=== PATIENT | male | born 1995 | race Caucasian/White ===

== ENCOUNTER 2019-01-16 12:30 | Emergency (ER) | payer OTHER ==
[~2019-01-16] VITALS: Wt 84.6 kg
[2019-01-16 12:35] VITALS: RESP 22
[2019-01-16] MEDS ORDERED: KETOROLAC 60 MG INJ IM STA (13:42)
[2019-01-16] MEDS ORDERED: IBUP-1542 PO (13:44)
[2019-01-16] MEDS ORDERED: MED4DP PO (13:44)
[2019-01-16] MEDS ORDERED: CYCL10TA7 PO (13:44)
[2019-01-16] MEDS ORDERED: HYDR-4011 PO (13:44)
--- NOTE | 2019-01-16 13:49 | ERD ---
ER Documentation Chief Complaint Chief Complaint L lower back pain since yest p lifting furn; hx 'pinched nerve' HPI This is a 23-year-old male with a history of chronic back pain who presents ED with complaints of flareup of low back pain that started yesterday. Patient was lifting heavy furniture at work when he started experiencing left low back pain. Patient admits to painful range of motion and decreased range of motion due to pain. Denies any tingling, numbness, lack sensation, bowel/bladder incontinence, weakness, history of IV drug use, saddle paresthesias, fevers, chills and other symptoms. No known drug allergies. ROS All systems reviewed and are negative except as per history of present illness. Medications Home Meds Active Scripts Methylprednisolone* (Medrol* DOSE PACK) 4 Mg/Dose-Pack Tab.ds.pk, 4 MG PO . DIRECTED for 5 Days, PACKET Prov:KRISTIAN MARKS PA-C 01/16/19 Ibuprofen* (Motrin*) 600 Mg Tab, 600 MG PO Q6, #30 TAB Prov:KRISTIAN MARKS PA-C 01/16/19 Cyclobenzaprine Hcl* (Cyclobenzaprine Hcl*) 10 Mg Tablet, 10 MG PO TID, #15 TAB Prov:KRISTIAN MARKS PA-C 01/16/19 Hydrocodone/Acetaminophen (Flushing 5-325 Tablet) 1 Each Tablet, 1 TAB PO Q6H PRN for PAIN, #7 TAB Prov:KRISTIAN MARKS PA-C 01/16/19 Allergies Allergies: Coded Allergies: No Known Allergy (Unverified , 01/16/19) PMhx/Soc Medical and Surgical Hx: pt denies Medical Hx, pt denies Surgical Hx Hx Alcohol Use: No Hx Substance Use: No Hx Tobacco Use: No Smoking Status: Never smoker FmHx Family History: No diabetes Physical Exam Vitals Vital Signs Date Temp Pulse Resp B/P (MAP) Pulse Ox O2 O2 Flow FiO2 Time Delivery Rate 01/16/19 97.5 90 22 175/84 97 12:35 (114) Physical Exam Const: Mild distress Head: Atraumatic Eyes: Normal Conjunctiva ENT: Normal External Ears, Nose and Mouth. Neck: Full range of motion. No meningismus. Resp: Clear to auscultation bilaterally Cardio: Regular rate and rhythm, no murmurs Skin: No petechiae or rashes Back: No thoracic or lumbar midline tenderness, there is moderate tenderness palpation along the paravertebral muscles in the left low back, no step-off deformities, positive straight leg raise on left and side Ext: No cyanosis, or edema Neur: Awake and alert Psych: Normal Mood and Affect Results 24 hrs Current Medications Medications Dose Sig/Heri Start Time Status Last (Trade) Ordered Route PRN Stop Time Admin Dose Reason Admin Ketorolac 60 mg ONCE STAT 01/16/19 DC 01/16/19 Tromethamine IM 13:42 13:58 (Toradol) 01/16/19 13:44 125 mg ONCE ONCE 01/16/19 DC 01/16/19 Methylprednis IM 14:00 13:58 olone Sodium 01/16/19 14:01 Succinate (Solu-Medrol) 10 mg ONCE ONCE 01/16/19 DC 01/16/19 Cyclobenzapri PO 14:00 13:56 ne HCl 01/16/19 14:01 (Flexeril) 1 tab ONCE ONCE 01/16/19 DC 01/16/19 Acetaminophen PO 14:00 13:56 / 01/16/19 14:01 Hydrocodone Bitart (Flushing (5/325)) Procedures/MDM ER COURSE: The patient was given Toradol, Solu-Medrol, Flexeril Flushing The medication was well tolerated and the patient reports improvement in symptoms. The patient was stable throughout ED course. I kept the patient and/or family informed of laboratory and diagnostic imaging results throughout the emergency room course. The patient was promptly evaluated and a treatment plan was devised based on H&P and other data. This plan was discussed with the patient who agreed and had no further questions or concerns prior to discharge. MEDICAL DECISION MAKIN-year-old male presents ED with flareup of low back pain that started yesterday while lifting a heavy piece of furniture at work. Given mechanism of injury and location of back pain being along the paravertebral muscles this is likely a muscle strain or muscle related pain with flareup of sciatica. History and physical examination other data not consistent with processing including cauda equina syndrome, cord compression, infiltrative etiology, infectious etiology, epidural abscess, fracture, obstructive pyelonephritis, abdominal aortic aneurysm. Vitals are stable and patient can be managed outpatient with close follow-up. Advised patient to follow up with primary care in the next 48 hours. return to ED with any worsening symptoms DISPOSITION PLAN: We discussed follow up with the patient's primary care doctor within 24 to 48 hours. Patient counseled regarding my diagnostic impression and care plan. Prior to discharge all questions answered. Pt agrees with treatment plan and un derstands strict return precautions. Precautionary instructions provided including instructions to return to the ER if not improving or for any worsening or changing symptoms or concerns. SPECIALIST FOLLOW UP RECOMMENDED: None Patient has been advised to follow up with primary care in 1-2 days. Disclaimer: Inadvertent spelling and grammatical errors are likely due to EHR/dictation software use and do not reflect on the overall quality of patient care. Also, please note that the electronic time recorded on this note does not necessarily reflect the actual time of the patient encounter. Blood Pressure Assessment: Patient's blood pressure was elevated (>120/80) but appears stable without evidence of hypertension emergency or urgency. The patient was counseled about the risks of hypertension and urged to pursue outpatient monitoring and therapy within a week with their primary care marita cat. Departure Diagnosis: Primary Impression: Back pain Back pain location: low back pain Chronicity: acute Back pain laterality: left Sciatica presence: with sciatica Sciatica laterality: sciatica of left side Qualified Codes: M54.42 - Lumbago with sciatica, left side Condition: Stable Patient Instructions: Back Pain (Acute Or Chronic), Back Pain W/ Sciatica Referrals: COMMUNITY CLINICS YOU HAVE RECEIVED A MEDICAL SCREENING EXAM AND THE RESULTS INDICATE THAT YOU DO NOT HAVE A CONDITION THAT REQUIRES URGENT TREATMENT IN THE EMERGENCY DEPARTMENT. FURTHER EVALUATION AND TREATMENT OF YOUR CONDITION CAN WAIT UNTIL YOU ARE SEEN IN YOUR DOCTORS OFFICE WITHIN THE NEXT 1-2 DAYS. IT IS YOUR RESPONSIBILITY TO MAKE AN APPOINTMENT FOR FOLOW-UP CARE. IF YOU HAVE A PRIMARY DOCTOR --you should call your primary doctor and schedule an appointment IF YOU DO NOT HAVE A PRIMARY DOCTOR YOU CAN CALL OUR PHYSICIAN REFERRAL HOTLINE AT IF YOU CAN NOT AFFORD TO SEE A PHYSICIAN YOU CAN CHOSE FROM THE FOLLOWING [facility] [address] [facility] [address] [facility]. [facility] [address] [facility] [address] [facility] [address] [facility]. [facility] [address] Additional Instructions: Patient advised to return to the ED immediately for new or worsening symptoms. Patient advised to follow up with primary care provider in the next 24-48 hours. Patient verbalized understanding and agrees with treatment plan and course of action. If patient has no primary care they may follow up with one of the community clinics listed on the following page or one of the options listed below [facility] + [facility] [address] [place] [id number] or [facility] [address] [place] [address] or [facility] [address] [place] [address] KRISTIAN MARKS PA-C Jan 16, 2019 13:49
[2019-01-16] MEDS ORDERED: HYDROCODONE/APAP (5/325) TAB PO ONE (14:00)
[2019-01-16] MEDS ORDERED: CYCLOBENZAPRINE 10 MG TAB PO ONE (14:00)
[2019-01-16] MEDS ORDERED: METHYLPREDNISOLONE 125 MG INJ IM ONE (14:00)
[2019-01-16 15:06] VITALS: BP 134/87; PULSE 69
== END 2019-01-16 15:06 | disposition home or self-care (01) ==
LOC: FTE 12:30
DX: M54.42 Lumbago with sciatica, left side (principal)
CPT/HCPCS: 96372; J1885; J2930; Z7502; Z7610